=== PATIENT | male | born 1955 | race Caucasian/White ===

== ENCOUNTER 2018-03-24 17:07 | Inpatient (IN) | payer OTHER ==
[~2018-03-24] VITALS: Ht 167.6 cm; Wt 64.7 kg
[2018-03-24] MEDS ORDERED: KETAMINE 10 MG/ML, 20ML ONE (17:31)
[2018-03-24] MEDS ORDERED: MIDAZOLAM 1 MG/ML, 2ML ONE (17:31)
[2018-03-24] MEDS ORDERED: ADENOSINE 6 MG/2 ML ONE (17:32)
[2018-03-24] MEDS ORDERED: KETAMINE 100 MG/ML, 5ML IV STA (17:34)
[2018-03-24] MEDS ORDERED: ONDANSETRON 2MG/ML, 2ML ONE (17:40)
[2018-03-24] MEDS: ADENOSINE 6 MG/2 ML IVPush ONE ×4 (17:52→18:30)
[2018-03-24] MEDS ORDERED: MIDAZOLAM 1 MG/ML, 5ML IVPush ONE (18:00)
[2018-03-24] MEDS ORDERED: ONDANSETRON 2MG/ML, 2ML IVPush ONE (18:00)
[2018-03-24] MEDS ORDERED: SODIUM CHLORIDE FLUSH 10ML SYR IVF ONE (18:00)
[2018-03-24] MEDS ORDERED: SODIUM CHLORIDE 0.9% 1,000ML IVBOLUS ONE (18:00)
[2018-03-24 18:04] LABS: BASOPHILS # (AUTO) 0.05 x10^3/uL (0-0.1); BASOPHILS % (AUTO) 1 % (0-1); EOSINOPHILS # (AUTO) 0.09 x10^3/uL (0-0.4); EOSINOPHILS % (AUTO) 1 % (1-7); LYMPHOCYTES # (AUTO) 4.02 x10^3/uL (1-3.4); LYMPHOCYTES % (AUTO) 45 % (22-44); MD NO; MEAN CORPUSCULAR HEMOGLOBIN 31.5 pg (27.5-34.5); MEAN CORPUSCULAR HGB CONC 33.7 g/dL (33.2-36.2); MEAN CORPUSCULAR VOLUME 93.3 fL (81-97); MEAN PLATELET VOLUME 8.4 fL (7.4-10.4); MONOCYTES # (AUTO) 0.76 x10^3/uL (0.2-0.8); MONOCYTES % (AUTO) 9 % (2-9); NEUTROPHILS # (AUTO) 3.95 x10^3/uL (1.8-6.8); NEUTROPHILS % (AUTO) 45 % (42-75); PLATELET COUNT 277 x10^3/uL (130-400); RED BLOOD COUNT 5.36 x10^6/uL (4.38-5.82); RED CELL DISTRIBUTION WIDTH 13.6 % (9.4-14.8)
[2018-03-24 18:07] LABS: D-DIMER 0.39 ug/mlFEU (0.00-0.52); INTERNATIONAL NORMALIZED RATIO 1.07 (0.93-1.1)
[2018-03-24 18:08] LABS: ALBUMIN 4.4 g/dL (3.4-5.0); ANION GAP 12 mmol/L (5-15); CALCIUM 9.6 mg/dL (8.5-10.1); CHLORIDE 108 mmol/L (98-107)
[2018-03-24 18:20] LABS: ALANINE AMINOTRANSFERASE 31 U/L (12-78); ALKALINE PHOSPHATASE 64 U/L (45-117); BILIRUBIN,TOTAL 0.9 mg/dL (0.2-1.0); CREATININE 1.39 mg/dL (0.7-1.3); T4 (THYROXINE) 14.6 mcg/dL (4.5-12.1); TOTAL PROTEIN 7.1 g/dL (6.4-8.2)
[2018-03-24] MEDS ORDERED: MAGNESIUM SULFATE PMX 2GM/50ML 50 ML IV ONE ×2 (18:30→20:30)
[2018-03-24] MEDS ORDERED: OMEP40CA6 PO (18:38)
[2018-03-24] MEDS ORDERED: PROP10TA PO (18:38)
[2018-03-24] MEDS ORDERED: PREG150C PO (18:38)
[2018-03-24] MEDS ORDERED: TAMS0.4C2 PO (18:38)
[2018-03-24] MEDS ORDERED: VENL100T PO (18:38)
[2018-03-24] MEDS ORDERED: MIRT15TA4 PO (18:38)
[2018-03-24] MEDS ORDERED: BISACODYL 10 MG SUPP PR PRN (20:00)
[2018-03-24] MEDS ORDERED: ONDANSETRON 2MG/ML, 2ML IVPush PRN (20:00)
[2018-03-24] MEDS ORDERED: POLYETHYLENE GLYCOL 17 GM PACKET PO PRN (20:00)
[2018-03-24] MEDS ORDERED: ACETAMINOPHEN 325 MG TABLET PO PRN (20:00)
[2018-03-24] MEDS ORDERED: POTASSIUM CHLORIDE 20 MEQ TAB.ER.PRT PO ONE (20:30)
[2018-03-24] MEDS: PREGABALIN 150 MG CAPSULE PO SCH (21:24)
[2018-03-24] MEDS: VENLAFAXINE 75MG TABLET PO SCH (21:24)
[2018-03-24] MEDS: HEPARIN 5,000 UNITS/ML, 1ML SQ SCH (21:25)
[2018-03-24] MEDS: SODIUM CHLORIDE 0.9% 1,000 ML IV SCH (21:25)
[2018-03-25 02:43] VITALS: BP 92/55
[2018-03-25 05:02] LABS: BASOPHILS # (AUTO) 0.04 x10^3/uL (0-0.1); BASOPHILS % (AUTO) 1 % (0-1); EOSINOPHILS # (AUTO) 0.07 x10^3/uL (0-0.4); EOSINOPHILS % (AUTO) 1 % (1-7); LYMPHOCYTES % (AUTO) 34 % (22-44); MD NO; MEAN CORPUSCULAR HEMOGLOBIN 30.9 pg (27.5-34.5); MEAN CORPUSCULAR HGB CONC 33.3 g/dL (33.2-36.2); MEAN CORPUSCULAR VOLUME 92.8 fL (81-97); MEAN PLATELET VOLUME 7.8 fL (7.4-10.4); MONOCYTES # (AUTO) 0.63 x10^3/uL (0.2-0.8); MONOCYTES % (AUTO) 10 % (2-9); NEUTROPHILS % (AUTO) 54 % (42-75); PLATELET COUNT 220 x10^3/uL (130-400); RED BLOOD COUNT 4.27 x10^6/uL (4.38-5.82); RED CELL DISTRIBUTION WIDTH 13.9 % (9.4-14.8)
[2018-03-25 05:08] LABS: CHLORIDE 110 mmol/L (98-107)
[2018-03-25 05:18] LABS: ALANINE AMINOTRANSFERASE 24 U/L (12-78); ALKALINE PHOSPHATASE 44 U/L (45-117); ANION GAP 8 mmol/L (5-15); BILIRUBIN,TOTAL 0.5 mg/dL (0.2-1.0); CALCIUM 7.4 mg/dL (8.5-10.1); TOTAL PROTEIN 5.1 g/dL (6.4-8.2); TROPONIN I 0.054 ng/mL (0.000-0.045)
[2018-03-25] MEDS: HEPARIN 5,000 UNITS/ML, 1ML SQ SCH ×2 (05:41→12:16)
[2018-03-25] MEDS ORDERED: PROPRANOLOL 20 MG TABLET PO SCH (06:00)
[2018-03-25 07:16] VITALS: BP 101/62
[2018-03-25] MEDS ORDERED: CALCIUM CHLORIDE 13.6 MEQ in SODIUM CHLORIDE 0.9% 100 ML IV ONE (08:00)
[2018-03-25] MEDS: PREGABALIN 150 MG CAPSULE PO SCH (08:22)
[2018-03-25] MEDS: VENLAFAXINE 75MG TABLET PO SCH (08:30)
[2018-03-25] MEDS: SODIUM CHLORIDE 0.9% 1,000 ML IV SCH (08:30)
[2018-03-25] MEDS ORDERED: MIRTAZAPINE 15 MG TABLET PO SCH ×2 (09:00→21:00)
[2018-03-25] MEDS ORDERED: SENNA/DOCUSATE TABLET PO SCH (09:00)
[2018-03-25] MEDS ORDERED: OMEPRAZOLE 20 MG CAPSULE.DR PO SCH (09:00)
[2018-03-25] MEDS ORDERED: TAMSULOSIN 0.4 MG CAP.ER.24H PO SCH (09:00)
[2018-03-25 11:48] LABS: TROPONIN I 0.021 ng/mL (0.000-0.045)
[2018-03-25] MEDS ORDERED: REGADENOSON 0.4 MG/5 ML SYRINGE ONE (14:01)
[2018-03-25 14:02] VITALS: BP 116/70
[2018-03-25 18:48] VITALS: BP 106/62
== END 2018-03-25 19:25 | disposition home or self-care (01) | DRG 308 ==
LOC: ED 18:52 → 5SO 19:17 → ED 20:28
PROVIDERS: ADMIT Hospitalist; ATTEND Hospitalist
PROC: 5A2204Z Restoration of Cardiac Rhythm, Single (ICD-10-PCS; principal; 2018-03-24)
DX: I48.91 Unspecified atrial fibrillation (principal); R57.0 Cardiogenic shock; E04.1 Nontoxic single thyroid nodule; E05.90 Thyrotoxicosis, unspecified without thyrotoxic crisis or storm; E83.42 Hypomagnesemia; F12.90 Cannabis use, unspecified, uncomplicated; F32.9 Major depressive disorder, single episode, unspecified; F41.9 Anxiety disorder, unspecified; K21.9 Gastro-esophageal reflux disease without esophagitis; N20.0 Calculus of kidney; Z82.49 Family history of ischemic heart disease and other diseases of the circulatory system; Z87.442 Personal history of urinary calculi; I95.9 Hypotension, unspecified; Z79.899 Other long term (current) drug therapy; Z88.0 Allergy status to penicillin; Z88.6 Allergy status to analgesic agent
CPT/HCPCS: 36415; 71045; 76536; 78452; 80053; 82330; 83735; 83880; 84436; 84439; 84443; 84484; 85025; 85379; 85610; 85730; 93005; 93017; 93306; J0153; J1644; J2250; J2405; J2785; A9502; C9898; J3475; J7030